=== PATIENT | male | born 1955 | race Caucasian/White ===

== ENCOUNTER 2020-07-04 10:07 | Emergency (ER) | payer BC, SELFPAY ==
[2020-07-04] MEDS ORDERED: TETANUS & DIPHTHERIA TOX,ADULT 0.5 ML VIAL ONE (10:28)
[2020-07-04] MEDS ORDERED: LIDOCAINE 1% MPF 30 ML VIAL ONE (10:29)
--- NOTE | 2020-07-04 10:43 | EDPHYS ---
Physician Documentation [facility] Name: Baldo Diaz Age: 65 yrs Sex: Male : 1955 Arrival Date: 07/04/2020 Time: 10:11 Bed 15 Private MD: ED Physician Collin Ramirez HPI: 07/04 10:38 This 65 yrs old Male presents to ER via Wheelchair with complaints of jr8 Laceration To Leg. 10:38 The patient has a laceration related to: working, from a sharp metal object, occurred jr8 at home. The laceration(s) is(are) located on the right leg. Onset: The symptoms/episode began/occurred acutely, today. Associated signs and symptoms: The patient has no apparent associated signs or symptoms. The patient has not experienced similar symptoms in the past. The patient has not recently seen a physician. Patient stated that he was walking by metal trailer while mowing and cut his inner right leg at mid calf level . Historical: - Allergies: 10:18 No Known Allergies; sv - Home Meds: 10:18 Plavix Oral [Active]; Metoprolol Tartrate Oral [Active]; sv - PMHx: 10:18 Myocardial infarction; sv - PSHx: 10:18 cardiac stents; sv - Immunization history:: Last tetanus immunization: unknown. - Social history:: Smoking status: . ROS: 10:38 Eyes: Negative for injury, pain, redness, and discharge, ENT: Negative for injury, jr8 pain, and discharge, Neck: Negative for injury, pain, and swelling, Cardiovascular: Negative for chest pain, palpitations, and edema, Respiratory: Negative for shortness of breath, cough, wheezing, and pleuritic chest pain, Abdomen/GI: Negative for abdominal pain, nausea, vomiting, diarrhea, and constipation, Back: Negative for injury and pain, Neuro: Negative for headache, weakness, numbness, tingling, and seizure. 10:38 MS/extremity: Positive for laceration, of the right leg. 10:38 Skin: Positive for laceration(s). Exam: 10:38 Constitutional: This is a well developed, well nourished patient who is awake, alert, jr8 and in no acute distress. Cardiovascular: Regular rate and rhythm with a normal S1 and S2. No gallops, murmurs, or rubs. Normal PMI, no JVD. No pulse deficits. Respiratory: Lungs have equal breath sounds bilaterally, clear to auscultation and percussion. No rales, rhonchi or wheezes noted. No increased work of breathing, no retractions or nasal flaring. Skin: Warm, dry with normal turgor. Normal color with no rashes, no lesions, and no evidence of cellulitis. Neuro: Awake and alert, GCS 15, oriented to person, place, time, and situation. Cranial nerves II-XII grossly intact. Motor strength 5/5 in all extremities. Sensory grossly intact. Cerebellar exam normal. Normal gait. 10:38 Musculoskeletal/extremity: Extremities: grossly normal except: noted in the right leg: Patient has approximately 7 cm laceration to subcutaneous tissue without facial or muscle involvement. Mild bleeding noted. Full ROM present and without pain. Pulses 2+ PT and DP bilaterally , Sensation intact. Vital Signs: 10:16 BP 164 / 79; Pulse 102; Resp 20; Pulse Ox 100% ; Weight 90.72 kg; Height 5 ft. 11 in. sv (180.34 cm); 10:42 BP 156 / 72; Pulse 75; Resp 17; Pulse Ox 97% on R/A; tw2 10:16 Body Mass Index 27.89 (90.72 kg, 180.34 cm) sv Laceration: 10:38 Wound Repair of 7cm ( 2.8in ) subcutaneous laceration to right leg. Linear shaped.. jr8 Minimal bleeding noted.. Distal neuro/vascular/tendon intact. Anesthesia: Local anesthetic administered with 8 mls of 1% lidocaine. Wound prep: Extensive cleansing with hibiclenz, Wound irrigation with saline, Wound explored extensively. Skin closed with 1 4-0 Prolene using running sutures and sterile technique. Patient tolerated well. MDM: 10:12 Patient medically screened. jr8 10:38 Data reviewed: vital signs, nurses notes, and as a result, I will discharge patient. jr8 Data interpreted: Pulse oximetry: on room air is 100 %. Interpretation: normal. Counseling: I had a detailed discussion with the patient and/or guardian regarding: the historical points, exam findings, and any diagnostic results supporting the discharge/admit diagnosis, the need for outpatient follow up, a family practitioner, to return to the emergency department if symptoms worsen or persist or if there are any questions or concerns that arise at home. 07/04 10:26 Order name: Dressing - Wound; Complete Time: 10:42 tw2 07/04 10: Order name: Gloves, Sterile; Complete Time: : tw2 07/04 10: Order name: Setup Suture Tray; Complete Time: : Administered Medications: 10:28 Drug: Lidocaine (1 %) 20 ml {Note: by PA. [employer]} Volume: 20 ml; Route: Infiltration; tw2 10:31 Drug: Tetanus-Diphtheria Toxoid Adult 0.5 ml {Machine Operator: [employer]. Exp: tw2 12/22/2021. Lot #: [id number]. } Route: IM; Site: left deltoid; 10:42 Follow up: Response: No adverse reaction tw2 Disposition: 18:34 Co-signature as Attending Physician, Collin Ramirez MD. rn Disposition: 07/04/20 10:43 Discharged to Home. Impression: Laceration without foreign body, right lower leg. - Condition is Stable. - Discharge Instructions: Laceration Care, Adult. - Medication Reconciliation Form, Thank You Letter, Antibiotic Education, Prescription Opioid Use form. - Follow up: Emergency Department; When: 7 - 10 days; Reason: Wound Recheck, Recheck today's complaints, Continuance of care, Staple/Suture removal, Re-evaluation by your physician. - Problem is new. - Symptoms have improved. Signatures: Vandana Kelsey RN RN sv Nieto, Roman, MD MD rn Roszak, Josh, PA PA jr8 Tanna Hickey RN RN tw2 Corrections: (The following items were deleted from the chart) 10:40 10:38 Patient stated that he was walking by metal trailer while mowing and cut his jr8 inner right leg at mid calve level . jr8 10:48 10:43 07/04/2020 10:43 Discharged to Home. Impression: Laceration without foreign body, tw2 right lower leg. Condition is Stable. Forms are Medication Reconciliation Form, Thank You Letter, Antibiotic Education, Prescription Opioid Use. Follow up: Emergency Department; When: 7 - 10 days; Reason: Wound Recheck, Recheck today's complaints, Continuance of care, Staple/Suture removal, Re-evaluation by your physician. Problem is new. Symptoms have improved. jr8
--- NOTE | 2020-07-04 10:43 | ER ---
Nurse's Notes [facility] Name: Baldo Diaz Age: 65 yrs Sex: Male : 1955 Arrival Date: 07/04/2020 Time: 10:11 Bed 15 Private MD: Diagnosis: Laceration without foreign body, right lower leg Presentation: 07/04 10:16 Chief complaint: Patient states: laceration to LLE from hitting something while sv outside. Coronavirus screen: Client denies travel out of the [place] in the last 14 days. At this time, the client does not indicate any symptoms associated with coronavirus-19. Ebola Screen: No symptoms or risks identified at this time. Complicating Factors: There are no complicating factors for this patient. Initial Sepsis Screen: Does the patient meet any 2 criteria? HR > 90 bpm. No. Patient's initial sepsis screen is negative. Does the patient have a suspected source of infection? Yes: Skin breakdown/wound. Risk Assessment: Do you want to hurt yourself or someone else? Patient reports no desire to harm self or others. Onset of symptoms was July 04, 2020. 10:16 Method Of Arrival: Wheelchair sv 10:16 Acuity: MARI 3 sv Historical: - Allergies: 10:18 No Known Allergies; sv - Home Meds: 10:18 Plavix Oral [Active]; Metoprolol Tartrate Oral [Active]; sv - PMHx: 10:18 Myocardial infarction; sv - PSHx: 10:18 cardiac stents; sv - Immunization history:: Last tetanus immunization: unknown. - Social history:: Smoking status: . Screenin:18 Abuse screen: Denies threats or abuse. Denies injuries from another. Nutritional sv screening: No deficits noted. Tuberculosis screening: No symptoms or risk factors identified. Fall Risk None identified. Assessment: 10:43 General: Appears in no apparent distress. Behavior is calm, cooperative, appropriate tw2 for age. Pain: Denies pain. Neuro: Level of Consciousness is awake, alert, obeys commands, Oriented to person, place, time, situation. Cardiovascular: Patient's skin is warm and dry. Respiratory: Airway is patent Respiratory effort is even, unlabored, Respiratory pattern is regular, symmetrical. GI: No signs and/or symptoms were reported involving the gastrointestinal system. : No signs and/or symptoms were reported regarding the genitourinary system. EENT: No signs and/or symptoms were reported regarding the EENT system. Derm: No signs and/or symptoms reported regarding the dermatologic system. Musculoskeletal: Range of motion: intact in all extremities. Injury Description: Laceration sustained to medial aspect of right calf is clean, 2.6 to 7.5 cm long, bleeding moderately. 10:48 Reassessment: Patient appears in no apparent distress at this time. No changes from tw2 previously documented assessment. Patient and/or family updated on plan of care and expected duration. Pain level reassessed. Patient is alert, oriented x 3, equal unlabored respirations, skin warm/dry/pink. Vital Signs: 10:16 BP 164 / 79; Pulse 102; Resp 20; Pulse Ox 100% ; Weight 90.72 kg; Height 5 ft. 11 in. sv (180.34 cm); 10:42 BP 156 / 72; Pulse 75; Resp 17; Pulse Ox 97% on R/A; tw2 10:16 Body Mass Index 27.89 (90.72 kg, 180.34 cm) sv ED Course: 10:11 Patient arrived in ED. em1 10:12 Baldemar Sahu PA is PHCP. jr8 10:12 Collin Ramirez MD is Attending Physician. jr8 10:16 Tanna Hickey, SPENSER is Primary Nurse. tw2 10:16 Call light in reach. Side rails up X 1. tw2 10:17 Triage completed. sv 10:18 Pulse ox on. NIBP on. sv 10:42 Arm band placed on. tw2 10:47 No provider procedures requiring assistance completed. Patient did not have IV access tw2 during this emergency room visit. Administered Medications: 10:28 Drug: Lidocaine (1 %) 20 ml {Note: by RADHA Meng.} Volume: 20 ml; Route: Infiltration; tw2 10:31 Drug: Tetanus-Diphtheria Toxoid Adult 0.5 ml {Tumbling Instructor: [facility]. Exp: tw2 12/22/2021. Lot #: [id number]. } Route: IM; Site: left deltoid; 10:42 Follow up: Response: No adverse reaction tw2 Outcome: 10:43 Discharge ordered by . jr8 10:48 Discharged to home via wheelchair. tw2 10:48 Condition: stable 10:48 Discharge instructions given to patient, Instructed on discharge instructions, follow up and referral plans. wound care, Demonstrated understanding of instructions, follow-up care, wound care. 10:48 Patient left the ED. tw2 Signatures: Vandana Kelsey, RN RN Deon Vogel em1 Baldemar Sahu PA PA jr8 Tanna Hickey RN RN tw2
[2020-07-08 23:14] VITALS: BP 156/72; O2SAT 97
== END 2020-07-04 10:48 | disposition home or self-care (01) ==
LOC: ER 10:07
PROC: 0JQN0ZZ Repair Right Lower Leg Subcutaneous Tissue and Fascia, Open Approach (ICD-10-PCS; principal; 2020-07-04)
DX: S81.811A Laceration without foreign body, right lower leg, initial encounter (principal); W26.8XXA Contact with other sharp object(s), not elsewhere classified, initial encounter; Y93.H9 Activity, other involving exterior property and land maintenance, building and construction; Y92.9 Unspecified place or not applicable; I25.2 Old myocardial infarction; Z79.01 Long term (current) use of anticoagulants; Z95.818 Presence of other cardiac implants and grafts; Z23 Encounter for immunization
CPT/HCPCS: 90471; 90714; 99283

== ENCOUNTER 2020-07-14 13:50 | Emergency (ER) | payer SELFPAY ==
--- NOTE | 2020-07-14 14:24 | ER ---
Nurse's Notes [facility] Name: Baldo Diaz Age: 65 yrs Sex: Male : 1955 Arrival Date: 07/14/2020 Time: 13:51 Bed 13 Private MD: Diagnosis: Encounter for removal of sutures Presentation: 07/14 13:56 Chief complaint: Patient states: "I need the sutures taken out, today is the 10th day". aa5 Sutures noted to right lower leg. 13:56 Coronavirus screen: Client denies travel out of the [place] in the last 14 days. At this aa5 time, the client does not indicate any symptoms associated with coronavirus-19. Ebola Screen: Patient negative for fever greater than or equal to 101.5 degrees Fahrenheit, and additional compatible Ebola Virus Disease symptoms. Initial Sepsis Screen: Does the patient meet any 2 criteria? No. Patient's initial sepsis screen is negative. Does the patient have a suspected source of infection? No. Patient's initial sepsis screen is negative. Risk Assessment: Do you want to hurt yourself or someone else? Patient reports no desire to harm self or others. Onset of symptoms was July 14, 2020. 13:56 Acuity: MARI 4 aa5 13:56 Method Of Arrival: Ambulatory aa5 Triage Assessment: 14:00 General: Appears in no apparent distress. comfortable, Behavior is calm, cooperative, bp appropriate for age. Pain: Denies pain. EENT: No deficits noted. Neuro: No deficits noted. Cardiovascular: No deficits noted. Respiratory: No deficits noted. GI: No signs and/or symptoms were reported involving the gastrointestinal system. : No signs and/or symptoms were reported regarding the genitourinary system. Derm: No deficits noted. Musculoskeletal: No deficits noted. Historical: - Allergies: 14:05 No Known Allergies; aa5 - PMHx: 14:04 Myocardial infarction; aa5 - PSHx: 14:04 cardiac stents; aa5 - Immunization history:: Adult Immunizations up to date. - Social history:: Patient uses Patient/guardian denies using alcohol, street drugs, The patient lives with family, Smoking status: Patient denies any tobacco usage or history of. - Family history:: not pertinent. Screenin:00 Abuse screen: Denies threats or abuse. Denies injuries from another. Nutritional bp screening: No deficits noted. Tuberculosis screening: No symptoms or risk factors identified. Fall Risk None identified. Assessment: 14:00 General: SEE TRIAGE NOTE. bp 14:51 Reassessment: PT D/C HOME AMBULATORY, DX WITH SUTURE REMOVAL. bp Vital Signs: 13:56 BP 140 / 75; Pulse 74; Resp 16 S; Temp 98.6(O); Pulse Ox 97% on R/A; aa5 14:28 BP 136 / 76; Pulse 64; Resp 16; Pulse Ox 94% ; bp ED Course: 13:51 Patient arrived in ED. ag5 13:56 Arm band placed on Patient placed in an exam room, on a stretcher. aa5 13:57 Olu Camacho, RN is Primary Nurse. bp 14:00 Patient has correct armband on for positive identification. Bed in low position. Call bp light in reach. Side rails up X2. 14:03 Triage completed. aa5 14:05 Stephanie Sanders MD is Attending Physician. ma2 14:24 Patient did not have IV access during this emergency room visit. Removal of Removed bp sutures from right leg Suture site is well healed Patient tolerated well. 14:29 No provider procedures requiring assistance completed. bp Administered Medications: No medications were administered Outcome: 14:24 Discharge ordered by . ma2 14:29 Discharged to home ambulatory. bp 14:29 Condition: stable 14:29 Discharge instructions given to patient, Instructed on discharge instructions, follow up and referral plans. wound care, Demonstrated understanding of instructions, follow-up care, wound care. 14:52 Patient left the ED. bp Signatures: Tisha Burns RN RN [facility] Olu Camacho, SPENSER RN bp Stephanie Sanders MD MD fl2 Sasha Rivas 5
--- NOTE | 2020-07-14 14:24 | EDPHYS ---
Physician Documentation [facility] Name: Baldo Diaz Age: 65 yrs Sex: Male : 1955 Arrival Date: 07/14/2020 Time: 13:51 Bed 13 Private MD: ED Physician Stephanie Sanders HPI: 07/14 14:21 This 65 yrs old Male presents to ER via Ambulatory with complaints of Suture ma2 Removal. 14:21 The patient has sutures on the right leg. Sutures/neva progress: The patient has no ma2 c/o's. The wound is well-healing with no redness, swelling, discharge, or dehiscence reported. The patient has not experienced similar symptoms in the past. Historical: - Allergies: 14:05 No Known Allergies; aa5 - PMHx: 14:04 Myocardial infarction; aa5 - PSHx: 14:04 cardiac stents; aa5 - Immunization history:: Adult Immunizations up to date. - Social history:: Patient uses Patient/guardian denies using alcohol, street drugs, The patient lives with family, Smoking status: Patient denies any tobacco usage or history of. - Family history:: not pertinent. ROS: 14:21 Constitutional: Negative for fever, chills, and weight loss. ma2 14:21 All other systems are negative. Exam: 14:21 Constitutional: This is a well developed, well nourished patient who is awake, alert, ma2 and in no acute distress. Head/Face: Normocephalic, atraumatic. Eyes: Pupils equal round and reactive to light, extra-ocular motions intact. Lids and lashes normal. Conjunctiva and sclera are non-icteric and not injected. Cornea within normal limits. Periorbital areas with no swelling, redness, or edema. ENT: Nares patent. No nasal discharge, no septal abnormalities noted. Tympanic membranes are normal and external auditory canals are clear. Oropharynx with no redness, swelling, or masses, exudates, or evidence of obstruction, uvula midline. Mucous membranes moist. Neck: Trachea midline, no thyromegaly or masses palpated, and no cervical lymphadenopathy. Supple, full range of motion without nuchal rigidity, or vertebral point tenderness. No Meningismus. Chest/axilla: Normal chest wall appearance and motion. Nontender with no deformity. No lesions are appreciated. Cardiovascular: Regular rate and rhythm with a normal S1 and S2. No gallops, murmurs, or rubs. Normal PMI, no JVD. No pulse deficits. Respiratory: Lungs have equal breath sounds bilaterally, clear to auscultation and percussion. No rales, rhonchi or wheezes noted. No increased work of breathing, no retractions or nasal flaring. Abdomen/GI: Soft, non-tender, with normal bowel sounds. No distension or tympany. No guarding or rebound. No evidence of tenderness throughout. Back: No spinal tenderness. No costovertebral tenderness. Full range of motion. Skin: Warm, dry with normal turgor. Normal color with no rashes, no lesions, and no evidence of cellulitis. MS/ Extremity: Pulses equal, no cyanosis. Neurovascular intact. Full, normal range of motion. Neuro: Awake and alert, GCS 15, oriented to person, place, time, and situation. Cranial nerves II-XII grossly intact. Motor strength 5/5 in all extremities. Sensory grossly intact. Cerebellar exam normal. Normal gait. 14:21 Skin: wound is partially healed and dry no cellulitis, Warm, dry with normal turgor. ma2 Normal color with no rashes, no lesions, and no evidence of cellulitis. Vital Signs: 13:56 BP 140 / 75; Pulse 74; Resp 16 S; Temp 98.6(O); Pulse Ox 97% on R/A; aa5 14:28 BP 136 / 76; Pulse 64; Resp 16; Pulse Ox 94% ; bp Procedures: 14:21 Suture/Staple removal: Removed 1 continuious , from right leg, site appears well ma2 healed, dressed with band aid, Neosporin, Patient tolerated well. MDM: 14:05 Patient medically screened. mo2 14:21 Data reviewed: vital signs. mo2 14:21 Counseling: I had a detailed discussion with the patient and/or guardian regarding: the [facility] historical points, exam findings, and any diagnostic results supporting the discharge/admit diagnosis, the presence of at least one elevated blood pressure reading (>120/80) during this emergency department visit, the need for outpatient follow up. Response to treatment: the patient's symptoms have resolved after treatment. Administered Medications: No medications were administered Disposition: 07/14/20 14:24 Discharged to Home. Impression: Encounter for removal of sutures. - Condition is Stable. - Discharge Instructions: Suture Removal, Care After. - Medication Reconciliation Form, Thank You Letter, Antibiotic Education, Prescription Opioid Use form. - Follow up: Private Physician; When: Tomorrow; Reason: Continuance of care. Signatures: Tisha Burns RN RN aa5 Olu Camacho RN RN bp Stephanie Sanders MD MD ma2 Corrections: (The following items were deleted from the chart) 14:52 14:24 07/14/2020 14:24 Discharged to Home. Impression: Encounter for removal of bp sutures. Condition is Stable. Forms are Medication Reconciliation Form, Thank You Letter, Antibiotic Education, Prescription Opioid Use. Follow up: Private Physician; When: Tomorrow; Reason: Continuance of care. ma2
[2020-07-15 13:34] VITALS: TEMP 98.6
[2020-07-15 13:35] VITALS: BP 136/76; O2SAT 94
== END 2020-07-14 14:52 | disposition home or self-care (01) ==
LOC: ER 13:50
DX: Z48.02 Encounter for removal of sutures (principal)
CPT/HCPCS: 99281

== ENCOUNTER 2025-08-08 06:31 | Day surgery (SDC) | payer OTHER, SELFPAY ==
[2025-08-06 11:33] LABS: Absolute Lymphocytes (CBC) 1.9 K/uL (0.7-4.9); Hematocrit 40.6 % (39.6-49.0); Hemoglobin 13.8 g/dL (13.6-17.9); MCH 30.8 pg (27.0-35.0); MCHC 33.9 g/dL (32.0-36.0); MCV 90.7 fL (80-100); MPV 8.0 fL (7.6-11.3); Nucleated RBC Absolute Count 0.0 (0-0); Nucleated Red Blood Cells % 0.2 % (0-0); RBC Red Blood Cell Count 4.48 M/uL (4.33-5.43); White Blood Count 5.50 thou/uL (4.3-10.9)
[2025-08-06 11:45] LABS: PT Prothrombin Time 11.2 SECONDS (10-13.0); PTT, Activated Partial Thromb 30.9 SECONDS (27.2-37.4); Protime INR 0.99
[2025-08-06 11:52] LABS: Anion Gap 7.9 mEq/L (5.0-15.0); BUN Blood Urea Nitrogen 14.0 mg/dL (7-18); Glucose Level 114.0 mg/dL (74-106); Potassium 3.9 mEq/L (3.5-5.1)
--- NOTE | 2025-08-06 13:21 | RAD REPORT ---
EXAM: Chest Pa And Lat (2 Views) HISTORY: 70 years Male PRE PROCEDURE COMPARISON: No prior exams FINDINGS: LUNGS/PLEURA: The lungs are clear. No pleural effusions or pneumothorax. No pulmonary edema. Small ca lcified right upper lobe nodule. CARDIAC/MEDIASTINUM: The cardiac silhouette is within normal limits. UPPER ABDOMEN: No significant abnormality. BONES: No acute abnormality. LINES/TUBES/OTHER: N/A IMPRESSION: No evidence of acute cardiopulmonary disease.
[2025-08-08] MEDS ORDERED: NITROGLYCERIN/D5W 50 MG/250 ML BTL IV ONE (06:49)
[2025-08-08] MEDS ORDERED: VERAPAMIL HCL 10 MG/4 ML VIAL IV ONE (06:53)
[2025-08-08] MEDS ORDERED: HEPARIN 10,000 UNIT/10 ML VIAL IV ONE (06:54)
[2025-08-08] MEDS ORDERED: LIDOCAINE 1% 20 ML MDV ONE (06:54)
[2025-08-08] MEDS ORDERED: HEPARIN 5000 UNIT/ML 1 ML VIAL ONE (06:54)
[2025-08-08] MEDS ORDERED: NA CHLORIDE 0.9% 500 ML ONE (07:01)
[2025-08-08] MEDS ORDERED: MIDAZOLAM HCL 2 MG/2 ML INJ ONE (07:13)
[2025-08-08] MEDS ORDERED: FENTANYL CITR 100 MCG/2 ML ONE (07:13)
[2025-08-08 11:56] VITALS: O2SAT 99
[2025-08-08 14:57] VITALS: BP 133/68
--- NOTE | 2025-08-08 18:45 | OP ---
Date of Procedure: 08/08/2025 Surgeon: WICHO CHARLES Procedures Performed: 1. Selective coronary angiogram. 2. Left heart catheterization. Indication: Unstable angina. Access: Right radial artery 6-Venezuelan closed with TR band. Complications: None. Bleeding: Less than 50 mL. Total Sedation Time: 45 minutes, used fentanyl and Versed. Description Of Procedure: After risks, benefits, and alternatives were explained, the patient agreed to procedure and signed informed consent. The patient was [facility], prepped and draped in the usual sterile fashion. Then, I accessed right radial artery using pediatric micropuncture kit and ultrasound guidance, and placed 6-[place]an slender sheath and took 5-Fr ench [place] 4.0 catheter over a J-wire into the aortic root across the aortic valve, measured the LVED P. Pullback did not record any gradient. Then, I engaged the left main, took standard views, and th en in the RCA, took standard views, and then I removed the catheter and the sheath, placed TR band wi th good hemostasis. Findings: 1. Left main; distal heavily calcified severe 90% stenosis extending into the ostial LAD. 2. LAD; ostially it is 90%. In the mid segment, there is a focal 70% stenosis. Diagonal 1 branch pelayo s proximal 70% stenosis. 3. Left circumflex; has ostial and proximal 99% stenosis and then it becomes normal. OM branch has a stent that is patent. 4. RCA; it is a dominant circulation with ostial 40% to 50% stenosis with widely patent stent and pro hussein faint collaterals to the septal branches of the LAD. 5. LVEDP is normal at 7 mmHg. 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 Recommendation: Coronary artery bypass surgery. SR/MODL Voice ID: [id number] Report ID: [id number]
== END 2025-08-08 14:45 | disposition short-term general hospital (02) ==
LOC: CCL 06:31
PROVIDERS: ATTEND Internal Medicine
DX: I25.110 Atherosclerotic heart disease of native coronary artery with unstable angina pectoris (principal); I34.0 Nonrheumatic mitral (valve) insufficiency; I65.23 Occlusion and stenosis of bilateral carotid arteries; I10 Essential (primary) hypertension; E78.2 Mixed hyperlipidemia; Z95.5 Presence of coronary angioplasty implant and graft; Z87.891 Personal history of nicotine dependence; Z79.02 Long term (current) use of antithrombotics/antiplatelets; Z79.82 Long term (current) use of aspirin; Z79.899 Other long term (current) drug therapy; Z82.49 Family history of ischemic heart disease and other diseases of the circulatory system
CPT/HCPCS: 93005; 85025; 80048; 36415; 85610; 85730; 71046; 93458; 76937; C1893; Q9966; J1644; J2003; J2250; J3010; J7040; 99152